=== PATIENT | male | born 1995 | race African-American/Black ===

== ENCOUNTER 2019-05-01 12:58 | Emergency (ER) | payer SELFPAY ==
[~2019-05-01] VITALS: Ht 172.7 cm; Wt 70.0 kg
[2019-05-01] MEDS ORDERED: IBUPROFEN 600MG TABLET PO ONE (14:30)
[2019-05-01 14:42] VITALS: BP 99/55
== END 2019-05-01 14:48 | disposition home or self-care (01) ==
LOC: ER 12:58
DX: S29.012A Strain of muscle and tendon of back wall of thorax, initial encounter (principal); V49.59XA Passenger injured in collision with other motor vehicles in traffic accident, initial encounter; Y93.89 Activity, other specified; Y92.410 Unspecified street and highway as the place of occurrence of the external cause
CPT/HCPCS: 99282